=== PATIENT | male | born 1995 | race Caucasian/White ===

== ENCOUNTER 2018-02-02 01:45 | Emergency (ER) | payer BC ==
[2018-02-02] MEDS ORDERED: diPHENhydraMINE IV* 50 MG/ML 1 ml VIAL (BENADRYL) SLOW PUSH ONE (02:23)
[2018-02-02] MEDS ORDERED: Famotidine IV* 10 MG/ML 2 ML (20 mg) IV SLOW PU ONE (02:24)
[2018-02-02] MEDS ORDERED: methylPREDNISolone 125 MG* 2 ML VIAL IV ONE (02:24)
[2018-02-02] MEDS ORDERED: NS 0.9% 1000 ML* 1,000 ML IV ONE (02:24)
[2018-02-02] MEDS ORDERED: Acetaminophen TAB* 325 MG PO ONE (02:25)
[2018-02-02 03:10] LABS: ABS Basophils 0 10^3/ul (0-0.2); ABS Eosinophils 0.2 10^3/ul (0-0.6); ABS Lymphocytes 1.1 10^3/ul (1.0-4.8); ABS Monocytes 0.4 10^3/ul (0-0.8); ABS Nucleated RBC 0 10^3/ul; Eosinophil % 2.9 % (0-6); Hematocrit 45 % (42-52); Hemoglobin 15.4 g/dl (14.0-18.0); Lymphocyte % 14.1 % (25-47); Mean Corpuscular HGB Conc 34 g/dl (31-36); Mean Corpuscular Hemoglobin 29 pg (27-31); Mean Corpuscular Volume 84 fL (80-94); Mean Platelet Volume 9.4 um3 (7.4-10.4); Nucleated Red Blood Cells % 0; Platelet Count 182 10^3/ul (150-450); Red Blood Count 5.32 10^6/ul (4.00-5.40); Red Cell Distribution Width 13 % (10.5-15); White Blood Count 7.8 10^3/ul (3.5-10.8)
--- NOTE | 2018-02-02 03:49 | ED ---
Kinjal Mcnally Elizabeth, scribed for Stanley Alejandre MD on 02/02/18 at 0233 . Allergic Reaction/Systemic - HPI Summary HPI Summary: This patient is a 22 year old M presenting to [facility] with a chief complaint of difficulty breathing and rash since 3 days ago. The patient reports that the symptoms began after taking amoxicillin for an ear infection. The patient rates the pain 0/10 in severity. Symptoms aggravated by amoxicillin. Symptoms alleviated by nothing. Patient reports pruritus, fever, and lightheadedness. The patient took Benadryl but reports that it did not alleviate his symptoms. - History of Current Complaint Chief Complaint: EDAllergicReaction Time Seen by Provider: 02/02/18 02:09 Hx Obtained From: Patient Onset/Duration: Sudden Onset, Started days ago - 3 days ago, Still Present Timing: Constant, Lasting Days - 3 days Severity Initially: Mild Severity Currently: Mild Pain Intensity: 0 Pain Scale Used: 0-10 Numeric Location: Diffuse Character: Pruritus Aggravating Factor(s): Other - amoxicillin Alleviating Factor(s): Nothing Associated Signs And Symptoms: Positive: Difficulty Breathing, Lightheadedness, Rash - diffuse rash, Other: - fever - Allergies/Home Medications Allergies/Adverse Reactions: Allergies Allergy/AdvReac Type Severity Reaction Status Date / Time amoxicillin Allergy Rash And Verified 02/02/18 03:26 Itching PMH/Surg Hx/FS Hx/Imm Hx Endocrine/Hematology History: Denies: Hx Diabetes Respiratory History: Denies: Hx Chronic Obstructive Pulmonary Disease (COPD) Opthamlomology History: Denies: Hx Legally Blind EENT History: Denies: Hx Deafness - Immunization History Date of Tetanus Vaccine: utd Date of Influenza Vaccine: fall Infectious Disease History: No Infectious Disease History: Denies: Traveled Outside the [place] in Last 30 Days - Family History Known Family History: Positive: None - Social History Alcohol Use: Weekly Hx Substance Use: No Substance Use Type: Reports: None Hx Tobacco Use: Yes Smoking Status (MU): Current Some Day Smoker Review of Systems Positive: Fever Positive: Shortness Of Breath - difficulty breathing Positive: Rash - diffuse rash Neurological: Other - lightheadedness All Other Systems Reviewed And Are Negative: Yes Physical Exam - Summary Physical Exam Summary: VITAL SIGNS: Reviewed. GENERAL: Patient is a well-developed and nourished MALE who is lying comfortable in the stretcher. Patient is not in any acute respiratory distress. HEAD AND FACE: No signs of trauma. No ecchymosis, hematomas or skull depressions. No sinus tenderness. EYES: PERRLA, EOMI x 2, No injected conjunctiva, no nystagmus. EARS: Hearing grossly intact. Ear canals and tympanic membranes are within normal limits. MOUTH: Oropharynx within normal limits. No blisters or sores in mouth. NECK: Supple, trachea is midline, no adenopathy, no JVD, no carotid bruit, no c- spine tenderness, neck with full ROM. CHEST: Symmetric, no tenderness at palpation LUNGS: Clear to auscultation bilaterally. No wheezing or crackles. CVS: Regular rate and rhythm, S1 and S2 present, no murmurs or gallops appreciated. ABDOMEN: Soft, non-tender. No signs of distention. No rebound no guarding, and no masses palpated. Bowel sounds are normal. EXTREMITIES: FROM in all major joints, no edema, no cyanosis or clubbing. NEURO: Alert and oriented x 3. No acute neurological deficits. Speech is normal and follows commands. SKIN: Dry and warm, diffuse macular rash. Triage Information Reviewed: Yes Vital Signs On Initial Exam: Initial Vitals Temp Pulse Resp BP Pulse Ox 101.9 F 109 20 143/85 99 02/02/18 01:48 02/02/18 01:48 02/02/18 01:48 02/02/18 01:48 02/02/18 01:48 Vital Signs Reviewed: Yes Diagnostics - Vital Signs Vital Signs Temp Pulse Resp BP Pulse Ox 02/02/18 01:48 101.9 F 109 20 143/85 99 - Laboratory Lab Results: Lab Results 02/02/18 02/02/18 Range/Units 02:44 02:44 WBC 7.8 (3.5-10.8) 10^3/ul RBC 5.32 (4.00-5.40) 10^6/ul Hgb 15.4 (14.0-18.0) g/dl Hct 45 (42-52) % MCV 84 (80-94) fL MCH 29 (27-31) pg MCHC 34 (31-36) g/dl RDW 13 (10.5-15) % Plt Count 182 (150-450) 10^3/ul MPV 9.4 (7.4-10.4) um3 Neut % (Auto) 77.7 (38-83) % Lymph % (Auto) 14.1 L (25-47) % [place] % (Auto) 5.1 (0-7) % Eos % (Auto) 2.9 (0-6) % Baso % (Auto) 0.2 (0-2) % Absolute Neuts (auto) 6.0 (1.5-7.7) 10^3/ul Absolute Lymphs (auto) 1.1 (1.0-4.8) 10^3/ul Absolute Monos (auto) 0.4 (0-0.8) 10^3/ul Absolute Eos (auto) 0.2 (0-0.6) 10^3/ul Absolute Basos (auto) 0 (0-0.2) 10^3/ul Absolute Nucleated RBC 0 10^3/ul Nucleated RBC % 0 Sodium 134 L (135-145) mmol/L Potassium 3.4 L (3.5-5.0) mmol/L Chloride 100 L (101-111) mmol/L Carbon Dioxide 24 (22-32) mmol/L Anion Gap 10 (2-11) mmol/L BUN 16 (6-24) mg/dL Creatinine 1.10 (0.67-1.17) mg/dL Est GFR ( Amer) 100.4 (>60) Est GFR (Non-Af Amer) 83.0 (>60) BUN/Creatinine Ratio 14.5 (8-20) Glucose 92 (70-100) mg/dL Calcium 9.2 (8.6-10.3) mg/dL Total Bilirubin 0.80 (0.2-1.0) mg/dL AST 25 (13-39) U/L ALT 20 (7-52) U/L Alkaline Phosphatase 70 (34-104) U/L C-Reactive Protein 45.13 H (<8.01) mg/L Total Protein 7.6 (6.4-8.9) g/dL Albumin 4.4 (3.2-5.2) g/dL Globulin 3.2 (2-4) g/dL Albumin/Globulin Ratio 1.4 (1-3) Result Diagrams: 02/02/18 02:44 02/02/18 02:44 Lab Statement: Any lab studies that have been ordered have been reviewed, and results considered in the medical decision making process. Re-Evaluation - Re-Evaluation 1st re-eval Re-Evaluation Time: 03:34 Change: Improved Comment: Discussed lab results with patient. Patient is feeling better. Allergic Reaction Course/Dx - Course Course Of Treatment: This patient is a 22 year old M reporting difficulty breathing, fever, lightheadedness, and diffuse macular rash with pruritus since 3 days ago. The patient reports that the symptoms began after taking amoxicillin for an ear infection. Test results with no significant abnormalities. In the ED course the patient was given IV fluids, Tylenol, methylprednisone, Benadryl, and Pepcid. Patient will be discharged with prescription for prednisone and Vistaril and follow up from primary care physician. The patient is agreeable with this plan. - Diagnoses Provider Diagnoses: Allergic reaction to drug Discharge - Sign-Out/Discharge Documenting (check all that apply): Discharge/Admit/Transfer - Discharge Plan Condition: Stable Disposition: HOME Discharge Disposition Comment: discharge home Prescriptions: hydrOXYzine pamoate [Vistaril] 50 mg PO Q6H PRN #20 capsule PRN Reason: Itching predniSONE TAB* [Deltasone TAB*] 50 mg PO DAILY #5 tab Patient Education Materials: Antibiotic Medication Allergy (ED) Referrals: [facility] PHYSICIAN REFERRAL [Outside] - 2 Days Additional Instructions: Follow up with [facility] physician referral in 1-2 days. Return to emergency department with any new or worsening symptoms. - Billing Disposition and Condition Condition: STABLE Disposition: Home The documentation as recorded by the Kinjal valenzuela Elizabeth accurately reflects the service I personally performed and the decisions made by me, Stanley Alejandre MD.
[2018-02-02 03:51] VITALS: BP 131/68
[2018-02-02] MEDS ORDERED: Ibuprofen TAB* 800 MG PO ONE (03:51)
== END 2018-02-02 03:56 | disposition home or self-care (01) ==
LOC: ED 01:45
DX: R06.00 Dyspnea, unspecified (principal); R50.9 Fever, unspecified; R42 Dizziness and giddiness; L27.1 Localized skin eruption due to drugs and medicaments taken internally; T36.0X5A Adverse effect of penicillins, initial encounter; Y92.9 Unspecified place or not applicable; F17.200 Nicotine dependence, unspecified, uncomplicated; Z88.3 Allergy status to other anti-infective agents
CPT/HCPCS: 36415; 80053; 85025; 86140; 96374; 96375; 99283; A9270-GY; J1200; J2930

== ENCOUNTER 2018-02-07 10:04 | Emergency (ER) | payer BC ==
--- NOTE | 2018-02-07 10:39 | ED ---
Skin Complaint - HPI Summary HPI Summary: Pt. is a 22 y.o male who presents to the ER for a pruritic rash x several days. Pt. states he started amoxicillin 01/29 for an ear infection and developed a rash later on in the day. Pt. states he has been seen numerous times in the past week. Pt. states he was switched to zithromax for his ear infection and those symptoms have resolved. Pt. presented 02/02 for worsening rash and SOB. He was placed on atarax and prednisone. Pt. presents today because rash is getting worse and itchier. He admits to intermittently facial swelling and abd. pain. Denies fever, chills, N/V/D, SOB. No past medical hx. Symptoms are mild in severity. Heat makes itching worse. Cool compress improved symptoms. - History of Current Complaint Chief Complaint: EDAllergicReaction Time Seen by Provider: 02/07/18 10:12 Stated Complaint: RASH Hx Obtained From: Patient Pain Intensity: 0 - Allergy/Home Medications Allergies/Adverse Reactions: Allergies Allergy/AdvReac Type Severity Reaction Status Date / Time amoxicillin Allergy Rash And Verified 02/07/18 10:16 Itching PMH/Surg Hx/FS Hx/Imm Hx Previously Healthy: Yes Endocrine/Hematology History: Denies: Hx Diabetes Respiratory History: Denies: Hx Chronic Obstructive Pulmonary Disease (COPD) Sensory History: Denies: Hx Legally Blind, Hx Deafness Opthamlomology History: Denies: Hx Legally Blind - Immunization History Date of Tetanus Vaccine: utd Date of Influenza Vaccine: fall Immunizations Up to Date: Yes Infectious Disease History: No Infectious Disease History: Denies: Traveled Outside the [place] in Last 30 Days - Family History Known Family History: Positive: None - Social History Alcohol Use: Weekly Hx Substance Use: No Substance Use Type: Reports: None Hx Tobacco Use: Yes Smoking Status (MU): Current Some Day Smoker Review of Systems Constitutional: Negative Negative: Fever, Chills Eyes: Negative ENT: Negative Cardiovascular: Negative Respiratory: Negative Positive: Abdominal Pain. Negative: Vomiting, Diarrhea, Nausea Genitourinary: Negative Positive: Rash Neurological: Negative All Other Systems Reviewed And Are Negative: Yes Physical Exam Triage Information Reviewed: Yes Vital Signs On Initial Exam: Initial Vitals Temp Pulse Resp BP Pulse Ox 97 F 103 18 147/101 97 02/07/18 10:12 02/07/18 10:12 02/07/18 10:12 02/07/18 10:12 02/07/18 10:12 Vital Signs Reviewed: Yes Appearance: Positive: Well-Appearing - Pt. sitting up in bed in NAD. Scratching skin. Skin: Positive: Warm, Dry, Other - Macular diffuse rash noted. Rash does not deisy. Negative Nikolsky sign. No vesicles or blisters. Head/Face: Positive: Normal Head/Face Inspection Eyes: Positive: Normal ENT: Positive: Normal ENT inspection, Pharynx normal, TMs normal. Negative: Pharyngeal erythema, Tonsillar swelling, Tonsillar exudate Neck: Positive: Supple. Negative: Nuchal Rigidity Respiratory/Lung Sounds: Positive: Clear to Auscultation, Breath Sounds Present. Negative: Wheezes Cardiovascular: Positive: Normal, RRR Abdomen Description: Positive: Nontender, Soft Musculoskeletal: Positive: Normal Neurological: Positive: Normal, CN Intact II-III Psychiatric: Positive: Affect/Mood Appropriate Diagnostics - Vital Signs Vital Signs Temp Pulse Resp BP Pulse Ox 02/07/18 10:12 97 F 103 18 147/101 97 - Laboratory Result Diagrams: 02/07/18 11:08 02/07/18 11:08 Lab Statement: Any lab studies that have been ordered have been reviewed, and results considered in the medical decision making process. Course/Dx - Course Course Of Treatment: Patient presenting for diffuse, petechial, nonblanching rash. He is afebrile with stable vital signs. Very well appearing. Patient examined by Dr. Rob as well. Concerned for possible ITP. Willl obtain labs and urine. IV placed. CBC shows leukocytosis of 18.5. Platelet count is normal. Chemistry unremarkable. UA is unremarkable. Monospot added by lab and it is positive. Suspect pt.'s rash is secondary to amoxicillin use with positive mono. Results discussed with pt. Advised to continue antihistamines for itching. Increase fluids and rest. Tylenol or motrin for pain as directed. To avoid contact sports for 4 weeks. To f.u with the hospital clinic. To return to ER if symptoms change or worsen. Pt. understands and agrees with plan. Assessment/Plan: Dr. Rob: I supervised the care of the physician histology assistant and I performed a history and physical on this patient. History: Laceration behind the right knee with a fresh postop knee replacement the end of December. Tetanus is up-to-date. Physical exam: Dirt contaminated wound posterior to the right knee with large laceration. Anteriorly, Steri-Stripped surgical wound clean and dry and intact. No active bleeding. Plan: Antibiotics here, discussed with orthopedics. Therapeutics okayed extensive cleaning of the wound here and suture closure by the PA. Follow-up in the office. - Differential Diagnoses - Skin Complaint Differential Diagnoses: Cellulitis, Contact Dermatitis, Drug Rash, Erythema Nodosum, Erythema Multiforme, Medication; Adverse Reaction, Ghosh-Luis Carlos Syndrome, Systemic Illness, Tick Born Illness, Viral Exanthem - Diagnoses Provider Diagnoses: Mononucleosis, Serum sickness due to drug Discharge - Sign-Out/Discharge Documenting (check all that apply): Patient Departure - Discharge Plan Condition: Good Disposition: HOME Patient Education Materials: Mononucleosis (ED), Antibiotic Medication Allergy (ED) Referrals: [facility] [Outside] No Primary Care Phys,NOPCP [Primary Care Provider] - Additional Instructions: Call the [facility] for a follow up appointment No contact sports x 4 weeks Increase fluids Continue over the counter antihistamines for itching as directed Return to ER if symptoms change or worsen - Billing Disposition and Condition Condition: GOOD Disposition: Home
[2018-02-07 11:24] LABS: Hematocrit 47 % (42-52); Hemoglobin 16.1 g/dl (14.0-18.0); Mean Corpuscular HGB Conc 35 g/dl (31-36); Mean Corpuscular Hemoglobin 29 pg (27-31); Mean Corpuscular Volume 83 fL (80-94); Red Blood Count 5.65 10^6/ul (4.00-5.40); Red Cell Distribution Width 13 % (10.5-15); White Blood Count 18.5 10^3/ul (3.5-10.8)
[2018-02-07 11:26] LABS: Urine Appearance Clear; Urine Blood 1+ (Negative); Urine Color Straw; Urine Ketones Negative (Negative); Urine Protein Negative (Negative); Urine Red Blood Cell Trace(0-2/hpf) (Absent); Urine Specific Gravity 1.004 (1.010-1.030); Urine Urobilinogen Negative (Negative); Urine White Blood Cell Absent (Absent)
[2018-02-07 11:51] LABS: ABS Basophils 0.1 10^3/ul (0-0.2); ABS Eosinophils 0 10^3/ul (0-0.6); ABS Monocytes 0.7 10^3/ul (0-0.8); ABS Neutrophils 12.6 10^3/ul (1.5-7.7); Mean Platelet Volume 9.1 um3 (7.4-10.4); Platelet Count 264 10^3/ul (150-450)
[2018-02-07 11:53] LABS: ABS Basophils 0 10^3/ul (0-0.2); Monocytes % 3 % (0-7)
[2018-02-07 12:42] VITALS: BP 133/76
== END 2018-02-07 12:52 | disposition home or self-care (01) ==
LOC: ED 10:04
DX: B27.90 Infectious mononucleosis, unspecified without complication (principal); T80.69XA Other serum reaction due to other serum, initial encounter; T50.Z95A Adverse effect of other vaccines and biological substances, initial encounter; S81.011A Laceration without foreign body, right knee, initial encounter; X58.XXXA Exposure to other specified factors, initial encounter; Y92.9 Unspecified place or not applicable; Z88.3 Allergy status to other anti-infective agents; F17.200 Nicotine dependence, unspecified, uncomplicated
CPT/HCPCS: 36415; 80053; 81003; 81015; 85025; 85060; 85610; 86308; 99282